=== PATIENT | female | born 1985 | race Caucasian/White ===

== ENCOUNTER 2017-12-03 15:10 | Emergency (ER) | payer OTHER ==
[2017-12-03 17:57] VITALS: BP 132/74
--- NOTE | 2017-12-04 12:15 | ED ---
Costa Gupta Angela, scribed for Ruben Lee MD on 12/03/17 at 1733 . Lower Extremity - HPI Summary HPI Summary: This pt is a 32 y/o female [facility]o right leg pain s/p fall on 2016. Pt reports she fell down 6 steps after losing her balance. She states her leg is erythematous and warm, which has been worsening since onset. Pt has taken ibuprofen with no relief. NKDA. Not on any anticoagulants. - History of Current Complaint Chief Complaint: EDExtremityLower Stated Complaint: RT LEG INJURY Time Seen by Provider: 12/03/17 17:30 Hx Obtained From: Patient Hx Last Menstrual Period: unknown Mechanism Of Injury: Fall From Height Of: - 6 steps Onset of Pain: Days Onset/Duration: Days Severity Currently: Moderate Pain Intensity: 6 Pain Scale Used: 0-10 Numeric Timing: Lasting Days Location: Is Discrete @ - right leg Associated Signs And Symptoms: Positive: Swelling, Redness. Negative: Knee Pain Able to Bear Weight: Yes - Allergies/Home Medications Allergies/Adverse Reactions: Allergies Allergy/AdvReac Type Severity Reaction Status Date / Time No Known Allergies Allergy Verified 12/03/17 17:05 Home Medications: Home Medications glipiZIDE TAB.XL* [Glucotrol XL*] 2.5 mg PO DAILY 12/03/17 [History Confirmed ] PMH/Surg Hx/FS Hx/Imm Hx Endocrine/Hematology History: Denies: Hx Diabetes Cardiovascular History: Denies: Hx Hypertension, Hx Pacemaker/ICD Sensory History: Denies: Hx Hearing Aid Psychiatric History: Denies: Hx Panic Disorder - Surgical History Surgery Procedure, Year, and Place: knee. R tibia- fixator. tubes in ears. 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 Denies: Traveled Outside the [place] in Last 30 Days - Family History Known Family History: Positive: Hypertension - Social History Alcohol Use: None Substance Use Type: Reports: None Smoking Status (MU): Never Smoked Tobacco Review of Systems Negative: Fever, Chills Cardiovascular: Negative Respiratory: Negative Gastrointestinal: Negative Genitourinary: Negative Musculoskeletal: Other - right leg pain Skin: Other - right leg erythematous Neurological: Negative All Other Systems Reviewed And Are Negative: Yes Physical Exam - Summary Physical Exam Summary: Appearance: The patient is well-nourished in no acute distress and in no acute pain. Skin: The skin is warm and dry and skin color reflects adequate perfusion. HEENT: The head is normocephalic and atraumatic. The pupils are equal and reactive. The conjunctivae are clear and without drainage. Nares are patent and without drainage. Mouth reveals moist mucous membranes and the throat is without erythema and exudate. The external ears are intact. The ear canals are patent and without drainage. The tympanic membranes are intact. Neck: the neck is supple with full range of motion and non-tender. There are no carotid bruits. There is no neck vein distension. Respiratory: Chest is non-tender. Lungs are clear to auscultation and breath sounds are symmetrical and equal. Cardiovascular: Heart is regular rate and rhythm. There is no murmur or rub auscultated. There is no peripheral edema and pulses are symmetrical and equal. Abdomen: The abdomen is soft and non-tender. There are normal bowel sounds heard in all four quadrants and there is no organomegaly palpated. Musculoskeletal: There is no back tenderness noted. There is good capillary refill. There is no peripheral edema or calf tenderness elicited. 10 cm circular area of erythema and warmth with some resolving ecchymosis around it on the RLE. Neurological: Patient is alert and oriented to person, place and time. The patient has symmetrical motor strength in all four extremities. Cranial nerves are grossly intact. Deep tendon reflexes are symmetrical and equal in all four extremities. Psychiatric: The patient has an appropriate affect and does not exhibit any anxiety or depression. Triage Information Reviewed: Yes Vital Signs On Initial Exam: Initial Vitals Temp Pulse Resp BP Pulse Ox 98.9 F 84 20 113/79 100 12/03/17 15:18 12/03/17 15:18 12/03/17 15:18 12/03/17 15:18 12/03/17 15:18 Vital Signs Reviewed: Yes - [place] Coma Scale Coma Scale Total: 15 Diagnostics - Vital Signs Vital Signs Temp Pulse Resp BP Pulse Ox 12/03/17 15:18 98.9 F 84 20 113/79 100 - Laboratory Lab Statement: Any lab studies that have been ordered have been reviewed, and results considered in the medical decision making process. Lower Extremity Course/Dx - Course Course Of Treatment: Ms. Randhawa has developed a small area of cellulitis where she bruised her leg the other day. I will treat her with Keflex and encourage close F/U. She does not look toxic and her vitals are stable. - Diagnoses Provider Diagnoses: Cellulitis Discharge - Discharge Plan Condition: Stable Disposition: HOME Prescriptions: Cephalexin CAP* [Keflex CAP*] 500 mg PO QID #40 cap Patient Education Materials: Cellulitis (ED) Referrals: Andre Ball DO [Primary Care Provider] - Additional Instructions: Please follow up with your primary care provider. RETURN TO THE ED FOR ANY WORSENING SYMPTOMS. The documentation as recorded by the Costa alcaraz Angela accurately reflects the service I personally performed and the decisions made by me, Ruben Lee MD.
== END 2017-12-03 17:55 | disposition home or self-care (01) ==
LOC: ED 15:10
DX: L03.115 Cellulitis of right lower limb (principal); L53.9 Erythematous condition, unspecified
CPT/HCPCS: 99282

== ENCOUNTER 2018-01-27 14:18 | Emergency (ER) | payer OTHER ==
[2018-01-27 16:08] VITALS: BP 155/75
[2018-01-27] MEDS ORDERED: Ketorolac INJ* 30 MG/ML 1 ML VIAL IV PUSH ONE (17:59)
[2018-01-27] MEDS ORDERED: Metoclopramide IV* 5 MG/ML 2 ML VIAL IV SLOW PU ONE (17:59)
[2018-01-27] MEDS ORDERED: diPHENhydraMINE IV* 50 MG/ML 1 ml VIAL (BENADRYL) IV ONE (17:59)
[2018-01-27] MEDS ORDERED: NS 0.9% 1000 ML* 1,000 ML IV ONE (17:59)
[2018-01-27 18:37] LABS: Hematocrit 39 % (35-47); Mean Corpuscular HGB Conc 34 g/dl (31-36); Mean Corpuscular Hemoglobin 27 pg (27-31); Mean Corpuscular Volume 82 fL (80-97); Mean Platelet Volume 8 um3 (7.4-10.4); Platelet Count 296 10^3/ul (150-450); Red Blood Count 4.74 10^6/ul (4.0-5.4); Red Cell Distribution Width 15 % (10.5-15); White Blood Count 8.7 10^3/ul (3.5-10.8)
[2018-01-27 18:47] LABS: EGFR Non-African American 92.1 (>60)
--- NOTE | 2018-01-27 18:48 | RAD ---
Indication: Headache for one week. Comparison: No relevant prior exams available on the [facility] PACS for comparison. Technique: Noncontrast CT vertex of skull through foramen magnum. Report: The sulci, ventricles, and basal cisterns are normal for age. Rodriguez matter white matter differentiation is preserved without evidence for edema. No intra or extra axial hemorrhage, mass, or fluid collection detected. Unremarkable visualized orbital contents. Unremarkable calvarium and skull base. Unremarkable scalp. The visualized paranasal sinuses and mastoid air spaces are clear. IMPRESSION: Negative unenhanced head CT.
--- NOTE | 2018-02-03 16:02 | ED ---
Hawk Gupta Thomas, scribed for Judd Mclaughlin MD on 01/27/18 at 1845 . Headache - HPI Summary HPI Summary: The patient is a 22 year old female presenting with a headache for the last 10 days that has been steadily worsening. The headache is located frontally and temporally. She has not taken any medication for the headache. She notes that she had left-sided neck pain yesterday. She denies fevers, sweats, and chills. She denies recent head injury. Past medical history includes DM and biscuspid aortic valve. - History Of Current Complaint Chief Complaint: EDHeadache Stated Complaint: HEADACHES/1 WK Time Seen by Provider: 01/27/18 17:38 Hx Obtained From: Patient Hx Last Menstrual Period: unknown Onset/Duration: Started weeks ago - 1.5, Still Present Currently Pain Is: Moderate Timing: Constant Location of Headache: Frontal, Temporal Aggravating Factor: Bright Lights Allevating Factors: Nothing Associated Signs And Symptoms: Negative - fever, sweats, chills, Neck Pain - left-sided, yesterday - Allergies/Home Medications Allergies/Adverse Reactions: Allergies Allergy/AdvReac Type Severity Reaction Status Date / Time No Known Allergies Allergy Verified 12/03/17 17:05 PMH/Surg Hx/FS Hx/Imm Hx Endocrine/Hematology History: Reports: Hx Diabetes Cardiovascular History: Reports: Other Cardiovascular Problems/Disorders - Hx Bicuspid aortic valve Denies: Hx Hypertension, Hx Pacemaker/ICD Sensory History: Denies: Hx Hearing Aid Psychiatric History: Denies: Hx Panic Disorder - Surgical History Surgery Procedure, Year, and Place: knee. R tibia- fixator. tubes in ears. 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 Negative: Myalgia, Edema Negative: Rash Neurological: Negative - dizziness Positive: Headache All Other Systems Reviewed And Are Negative: Yes Physical Exam - Summary Physical Exam Summary: Constitutional: Well-developed, Well-nourished, Alert. (-) Distressed Skin: Warm, Dry HENT: Normocephalic; Atraumatic Eyes: Conjunctiva normal Neck: Musculoskeletal ROM normal neck. (-) JVD, (-) Stridor, (-) Tracheal deviation Cardio: Rhythm regular, rate normal, Heart sounds normal; Intact distal pulses; The pedal pulses are 2+ and symmetric. Radial pulses are 2+ and symmetric. (-) Murmur Pulmonary/Chest wall: Effort normal. (-) Respiratory distress, (-) Wheezes, (-) Rales Abd: Soft. (-) Tenderness, ~(-) Distension, (-) Guarding, (-) Rebound Musculoskeletal: (-) Edema Lymph: (-) Cervical adenopathy Neuro: Alert, Oriented x3, Strength normal, Cranial nerves II-XII are grossly intact. (-) Dysmetria, (-) Nystagmus, (-) Ataxia by finger to nose testing, (-) Sensory deficit. Psych: Mood and affect Normal Triage Information Reviewed: Yes Vital Signs On Initial Exam: Initial Vitals Temp Pulse Resp BP Pulse Ox 97.9 F 78 18 157/90 99 01/27/18 14:27 01/27/18 14:27 01/27/18 14:27 01/27/18 14:27 01/27/18 14:27 Vital Signs Reviewed: Yes Diagnostics - Vital Signs Vital Signs Temp Pulse Resp BP Pulse Ox 01/27/18 16:06 98.6 F 77 14 155/75 100 01/27/18 14:27 97.9 F 78 18 157/90 99 - Laboratory Lab Results: Lab Results 01/27/18 Range/Units 18:16 WBC 8.7 (3.5-10.8) 10^3/ul RBC 4.74 (4.0-5.4) 10^6/ul Hgb 13.0 (12.0-16.0) g/dl Hct 39 (35-47) % MCV 82 (80-97) fL MCH 27 (27-31) pg MCHC 34 (31-36) g/dl RDW 15 (10.5-15) % Plt Count 296 (150-450) 10^3/ul MPV 8 (7.4-10.4) um3 ESR Pending Result Diagrams: 01/27/18 18:16 01/27/18 18:16 Lab Statement: Any lab studies that have been ordered have been reviewed, and results considered in the medical decision making process. - CT CT Brain CT Interpretation: No Acute Changes - Negative unenhanced head CT. Dr. Mclaughlin has reviewed this report. CT Interpretation Completed By: Radiologist Headache Course/Dx - Course Assessment/Plan: The patient is a 22 year old female presenting with a headache for the last 10 days that has been steadily worsening. In the ED course the patient was given Toradol, Reglan, Benadryl, and IV fluids. Bloodwork was obtained. CT Brain is negative for acute pathology. The patient eloped without being discharged. The plan was to discuss a lumbar puncture with her. She left while I was caring for a critical patient. She was apparently feeling better after Reglan. - Diagnoses Provider Diagnoses: Left against medical advice, Headache Discharge - Discharge Plan Condition: Guarded Disposition: OTHER Discharge Disposition Comment: THE PATIENT ELOPED Referrals: Mari Muñoz MD [Primary Care Provider] - The documentation as recorded by the Hawk alcaraz Thomas accurately reflects the service I personally performed and the decisions made by , Judd Mclaughlin MD.
== END 2018-01-27 20:28 ==
LOC: ED 14:18
DX: R51 Headache (principal); M54.2 Cervicalgia; Z53.21 Procedure and treatment not carried out due to patient leaving prior to being seen by health care provider
CPT/HCPCS: 36415; 70450; 80053; 85027; 85652; 86141; 96374; 96375; 99283; J1200; J1885; J2765

== ENCOUNTER 2019-06-05 15:05 | Emergency (ER) | payer OTHER ==
[2019-06-05 15:34] VITALS: BP 148/90
--- NOTE | 2019-06-05 15:40 | UC ---
Dental HPI - HPI Summary HPI Summary: 33 y/o female presents to the urgent care c/o RT upper jaw pain w/ mild swelling and fracture molars and decay for the past 3 weeks. Pt saw her Dentist at [facility] and she is waiting for her insurance [employer] to authorize dental procedure. Dental pain flare up 3 days ago after eating. Pain is 6/10 w/ chewing. She has been taking Ibuprofen PO and Tylenol PO and Orajel to alleviate symptoms. Mild swelling this morning, she thinks it is infected. Pt denies trismus, ROBINS, SOB, chest pain, abdominal pain, N/V/D. - History of Current Complaint Chief Complaint: UCDentalProblem Stated Complaint: DENTAL CONCERN Time Seen by Provider: 06/05/19 15:26 Hx Obtained From: Patient Hx Last Menstrual Period: unknown Onset/Duration: Gradual Onset, Lasting Weeks - 3 weeks, Still Present, Worse Since - 3 days Severity: Moderate Pain Intensity: 6 Pain Scale Used: 0-10 Numeric Aggravating Factor(s): Chewing Alleviating Factor(s): OTC Meds - ibuprofen and tyleol. Last dose taken this morning around 0700Am Related History: Other - multiple tooth w/ gorss decay - Allergies/Home Medications Allergies/Adverse Reactions: Allergies Allergy/AdvReac Type Severity Reaction Status Date / Time No Known Allergies Allergy Verified 06/05/19 15:23 Home Medications: Home Medications Insulin Glargine,Hum.rec.anlog [Basaglar Kwikpen U-100] 74 unit SUBCUT DAILY 05/19 [History Confirmed 06/05/19] PMH/Surg Hx/FS Hx/Imm Hx Previously Healthy: Yes Endocrine History: Diabetes - Surgical History Surgical History: Yes Surgery Procedure, Year, and Place: knee. R tibia- fixator. tubes in ears. - Family History Known Family History: Positive: Hypertension, Diabetes - Social History Occupation: Employed Full-time Lives: With Family Alcohol Use: None Substance Use Type: None Smoking Status (MU): Never Smoked Tobacco Review of Systems All Other Systems Reviewed And Are Negative: Yes Constitutional: Positive: Negative Skin: Positive: Negative Eyes: Positive: Negative ENT: Positive: Negative, Dental Pain - RT upper jaw pain w/ a fracture molar Respiratory: Positive: Negative Cardiovascular: Positive: Negative Gastrointestinal: Positive: Negative Genitourinary: Positive: Negative Motor: Positive: Negative Neurovascular: Positive: Negative Musculoskeletal: Positive: Negative Neurological: Positive: Negative Psychological: Positive: Negative Is Patient Immunocompromised?: No Physical Exam - Summary Physical Exam Summary: Vital Signs Reviewed: Yes General: Well-Appearing, Well-Nourished obese female sitting in the examining table w/o any respiratory or pain distress Eyes: Positive: Conjunctiva Clear - PERRLA, EOMI, ENT: Positive: Normal ENT inspection, Hearing grossly normal, Pharynx normal, TMs normal - B/L external ear canals clear,. Negative: Tonsillar swelling, Tonsillar exudate, Trismus Dental: Positive: Gross Decay/Caries on molars #2 and 3 w/ gingival swelling and erythema, tender to percussion. involves tissue surrounding theses molars, w / positive anterior Cervical Lymphadenopathy. other molara also w/ gross decay Neck: Positive: Supple Respiratory: Positive: Chest non-tender, Lungs clear, Normal breath sounds, No respiratory distress Cardiovascular: Positive: RRR, No Murmur, Pulses Normal, Brisk Capillary Refill Abdomen Description: Positive: Nontender, No Organomegaly, Soft. Negative: CVA Tenderness (R), CVA Tenderness (L) Bowel Sounds: Positive: Present Musculoskeletal: Positive: Strength Intact, ROM Intact, No Edema Neurological Exam: Normal Psychological Exam: Normal Skin Exam: Normal Triage Information Reviewed: Yes Vital Signs: Initial Vital Signs Temp 96.7 F 06/05/19 15:19 Pulse 66 06/05/19 15:19 Resp 18 06/05/19 15:19 BP 148/90 06/05/19 15:19 Pulse Ox 100 06/05/19 15:19 Dental Complaint Course/Dx - Course Course Of Treatment: 33 y/o female presents to the urgent care c/o RT upper jaw pain w/ mild swelling and fracture molars and decay for the past 3 weeks. Pt saw her Dentist at [facility] and she is waiting for her insurance [employer] to authorize dental procedure. Dental pain flare up 3 days ago after eating. Pain is 6/10 w/ chewing. She has been taking Ibuprofen PO and Tylenol PO and Orajel to alleviate symptoms. Mild swelling this morning, she thinks it is infected. Pt denies trismus, ROBINS, SOB, chest pain, abdominal pain, N/V/D. Hx obtained. Pt with dental abscess around molar #2 and 3 w/ gross decay and fracture molars on examination. Pt Rx Clindamycin PO and Ibuprofen PO as directed below. Pt strongly advised to f/u with her Dentist at [facility] as soon as possible for further evaluation and treatment. D/C instructions explained. Pt's BP is elevated today advised to decrease salt in diet, monitor BP and f/u with PCP for further management. Pt understood and agreed with plan of care w/ plan of care. - Differential Dx/Diagnosis Differential Diagnosis/Dx: Dental Abscess, Dental Caries, Fractured Tooth, Odontogenic Pain, Peridontic Disease, Peritonsillar Abcess Provider Diagnosis: Dental abscess, Elevated BP without diagnosis of hypertension Discharge - Sign-Out/Discharge Documenting (check all that apply): Patient Departure - D/C home All imaging exams completed and their final reports reviewed: No Studies - Discharge Plan Condition: Stable Disposition: HOME Prescriptions: Clindamycin Cap(NF) [Clindamycin Cap 300 mg Cap(NF)] 300 mg PO TID #30 cap Ibuprofen TAB* [Motrin TAB* 800 MG] 800 mg PO Q6H PRN #30 tab PRN Reason: dental pain Patient Education Materials: Dental Abscess (ED) Referrals: Clarke Berry MD [Primary Care Provider] - 3 Days Additional Instructions: 1-Please take full course of antibiotics to avoid resistance. Take yogurt w/ probiotics or Culturelle to ptotect your GI system 2- Continue taken Ibuprofen PO and Tylenol PO to alleviate symptoms after meals to alleviate pain and swelling. 3- F/u with your Dentist at [facility] as soon as possible for further treatment. 4- If symptoms do not improve or worsen please return to the urgent care or f/u with your PCP in 3 days for further evaluation and treatment 5-Your BP is elevated today. please decrease salt in your diet, monitor BP and if it continues to be elevated please f/u with your PCP for further management. - Billing Disposition and Condition Condition: STABLE Disposition: Home
== END 2019-06-05 15:51 | disposition home or self-care (01) ==
LOC: UCCORT 15:05
DX: K04.7 Periapical abscess without sinus (principal); R03.0 Elevated blood-pressure reading, without diagnosis of hypertension; E11.9 Type 2 diabetes mellitus without complications; Z79.4 Long term (current) use of insulin
CPT/HCPCS: 99212; G0463